=== PATIENT | female | born 1980 | race Caucasian/White ===

== ENCOUNTER → 2024-02-01 11:31 | Outpatient (CLI) | payer OTHER, SELFPAY ==
--- NOTE | 2024-02-01 11:36 | DI.MG.S_ITS ---
BILATERAL DIGITAL SCREENING MAMMOGRAM 3D/2D WITH CAD: 02/01/2024 CLINICAL: Baseline exam. Routine screening. Family history of Breast Cancer. No prior exams were available for comparison. There are scattered areas of fibroglandular density in both breasts (category b / 25%-50% glandular tissue). Current study was also evaluated with a Computer Aided Detection (CAD) system. There is a round focal asymmetry in the right breast at 8 o'clock middle depth. No other significant masses, calcifications, or other findings are seen in either breast. IMPRESSION: INCOMPLETE: NEEDS ADDITIONAL IMAGING EVALUATION The round focal asymmetry in the right breast is indeterminate. Additional views with possible ultrasound are recommended. Based on the Tyrer Cuzick model (a risk assessment model) the patient's lifetime risk is 9.9% and her 10 year risk is 1.5%. According to the ACR, ACS, and NCCN guidelines, an annual breast MRI exam along with mammogram is recommended if the patient's lifetime risk is 20% or greater. This exam was interpreted at Station ID: [id number]. NOTE: For mammograms, a report in lay terms will be sent to the patient. Approximately 15% of breast malignancies will not be visualized mammographically. In the management of a palpable breast mass, a negative mammogram must not discourage biopsy of a clinically suspicious lesion. Electronically Signed By: Valerie rosen/mercedes:02/01/2024 17:47:36 letter sent: Additional Imaging Needed ACR BI-RADS Category 0: Incomplete [id number]
== END ==
LOC: MAMMO 11:36
PROVIDERS: PCP Nurse Practitioner Family; Referring Provider Nurse Practitioner Family; Visit Provider Nurse Practitioner Family
DX: Z12.31 Encounter for screening mammogram for malignant neoplasm of breast (principal); Z80.3 Family history of malignant neoplasm of breast; R92.323 Mammographic fibroglandular density, bilateral breasts
CPT/HCPCS: 77063; 77067

== ENCOUNTER → 2024-04-12 09:28 | Outpatient (CLI) | payer OTHER, SELFPAY ==
--- NOTE | 2024-04-12 09:29 | DI.US.S_ITS ---
PROCEDURE: US BREAST RT LIMITED COMPARISON: None. INDICATIONS: ADD VIEWS RT BREAST FINDINGS: IMPRESSION: Dictated by: Kalia Dykes M.D. on 04/12/2024 at 10:24 Approved by: Kalia Dykes M.D. on 04/12/2024 at 10:25
--- NOTE | 2024-04-12 09:29 | DI.MG.S_ITS ---
UNILATERAL RIGHT DIGITAL DIAGNOSTIC MAMMOGRAM 3D/2D WITH ADDITIONAL VIEWS: 04/12/2024 CLINICAL: Additional evaluation requested from prior study. Comparison is made to exam dated: 02/01/2024 mammogram - [facility]. There are scattered areas of fibroglandular density (category b / 25%-50% glandular tissue). There is a 0.7 cm oval equal density focal asymmetry in the right breast at 9 o'clock middle depth. This is seen in additional views. No other significant masses or calcifications are seen in the breast. IMPRESSION: INCOMPLETE: NEED ADDITIONAL IMAGING EVALUATION The 0.7 cm oval equal density focal asymmetry in the right breast resembles a cyst or a lymph node and is indeterminate. An ultrasound is recommended for further evaluation and is scheduled to immediately follow this examination. Based on the Tyrer Cuzick model (a risk assessment model) the patient's lifetime risk is 9.9% and her 10 year risk is 1.5%. According to the ACR, ACS, and NCCN guidelines, an annual breast MRI exam along with mammogram is recommended if the patient's lifetime risk is 20% or greater. This exam was interpreted at Station ID: [id number]. NOTE: For mammograms, a report in lay terms will be sent to the patient. Approximately 15% of breast malignancies will not be visualized mammographically. In the management of a palpable breast mass, a negative mammogram must not discourage biopsy of a clinically suspicious lesion. Electronically Signed By: Kalia Dykes M.D. at/:04/12/2024 10:03:44 Entry: - 04/14/2024 13:59:42 letter sent: Need Ultrasound ACR BI-RADS Category 0: Incomplete: Need Additional Imaging Evaluation
--- NOTE | 2024-04-12 10:07 | DI.US.S_ITS ---
Patient Name: MARY BLACKWELL date: 1980 Sex: F Attending Physician: Oswaldo Indications: Date: 04/12/2024 10:28 At the request of: AROLDO NUNN Procedure: US breast RT limited LIMITED ULTRASOUND OF RIGHT BREAST AND AXILLA: 04/12/2024 CLINICAL: Patient returns today to evaluate a focal asymmetry in the right breast. Comparison is made to exams dated: 04/12/2024 mammogram and 02/01/2024 mammogram - [facility]. Color flow and real-time ultrasound of the right breast 9 o'clock, and axilla regions were performed. Adams scale images of the real-time examination were reviewed. There is a 0.7 cm x 0.6 cm x 0.6 cm wider than tall oval cyst in the right breast at 9 o'clock middle depth 4 cm from the nipple. This oval cyst is hypoechoic with a well-defined boundary, internal echoes, and posterior acoustic enhancement. This correlates with mammography findings. Color flow imaging demonstrates that there is no vascularity present. IMPRESSION: PROBABLY BENIGN The 0.7 cm x 0.6 cm x 0.6 cm wider than tall oval cyst in the right breast is consistent with a complicated cyst versus cluster of cysts and is probably benign. A follow-up right mammogram and a right ultrasound in 6 months is recommended to demonstrate stability. Findings and recommendations were conveyed to the patient during today's evaluation. This exam was interpreted at Station ID: [id number]. Electronically Signed By: Kalia Dykes M.D. aty/:04/12/2024 10:28:08 Continued Report - Page 2 of 2 Patient Name: MARY BLACKWELL date: 1980 Sex: F Attending Physician: Oswaldo Indications: Date: 04/12/2024 10:28 At the request of: AROLDO NUNN Procedure: US breast RT limited letter sent: Followup Recommended ACR BI-RADS Category 3: Probably Benign
== END ==
LOC: MAMMO 09:28
PROVIDERS: PCP Nurse Practitioner Family; Referring Provider Nurse Practitioner Family; Visit Provider Nurse Practitioner Family
DX: R92.8 Other abnormal and inconclusive findings on diagnostic imaging of breast (principal); N60.01 Solitary cyst of right breast
CPT/HCPCS: 76642; 77065; G0279

== ENCOUNTER → 2025-05-18 08:41 | Outpatient (CLI) | payer OTHER, SELFPAY ==
--- NOTE | 2025-05-18 08:44 | DI.US.S_ITS ---
MM diagnostic mammo BI, US breast RT limited: 05/18/2025 BI-RADS: 2 CLINICAL: 45-year old female for bilateral diagnostic mammogram and right diagnostic breast ultrasound that is a follow-up to ultrasound, right on 04/12/2024. Tyrer- Cuzick lifetime risk of 9.7%. No personal or first-degree family history of breast cancer. Current reported family history of breast cancer: maternal grandmother. PRIOR EXAMS 04/12/2024, 02/01/2024. MAMMOGRAPHY TECHNIQUE: 2D and 3D (tomosynthesis) digital mammographic views obtained, with additional images as needed for full coverage. Current study was also evaluated with a Computer Aided Detection (CAD) system. ULTRASOUND TECHNIQUE TARGETED Right Breast Ultrasound: Real-time ultrasound exam was performed focused to area of clinical and/or imaging concern. Real-time underwood scale and color doppler imaging of the area of clinical interest was performed with image documentation. DENSITY B. There are scattered areas of fibroglandular density. MAMMOGRAPHY FINDINGS Right (finding-1): Outer at 9:00, Middle depth, measuring 0.7cm: Correlating with prior imaging concern, there is a stable focal asymmetry present. Left: No suspicious mass, asymmetry, microcalcification, or other abnormality seen. ULTRASOUND FINDINGS Right (finding-1): Outer at 9:00, 4 cm from nipple, measuring 0.6 x 0.5 x 0.6 cm: Correlating with findings on mammogram, there is a simple cyst. Doppler shows no vascularity. IMPRESSION: Right * No evidence of malignancy with benign findings. Left * No evidence of malignancy. RECOMMENDATIONS Bilateral * Annual screening mammography. COMMENTS: Findings and recommendations were conveyed to the patient during today's evaluation. OVERALL ASSESSMENT CATEGORY BI-RADS-2: Benign. The [employer] recommends annual screening mammography beginning at age 40 for women with average risk of breast cancer. ELECTRONICALLY SIGNED: Shawanda Shields M.D. on 05/18/2025 at 12:12:45 PM PT Interpreting Station ID: [id number]
== END ==
PROVIDERS: PCP Nurse Practitioner Family; Referring Provider Nurse Practitioner Family; Visit Provider Nurse Practitioner Family
DX: R92.8 Other abnormal and inconclusive findings on diagnostic imaging of breast (principal); N60.01 Solitary cyst of right breast; Z80.3 Family history of malignant neoplasm of breast
CPT/HCPCS: 76642; 77066; G0279